=== PATIENT | female | born 1985 | race African-American/Black ===

== ENCOUNTER 2018-09-17 10:06 | Emergency (ER) | payer OTHER ==
[~2018-09-17] VITALS: Ht 162.6 cm; Wt 60.4 kg
[2018-09-17 10:35] LABS: BILIRUBIN,URINE NEGATIVE (NEG); CLARITY,URINE CLEAR; COLOR,URINE YELLOW; NITRITE,URINE NEGATIVE (NEG); PH,URINE 6.5; PROTEIN,URINE NEGATIVE (NEG-TRACE); UROBILINOGEN,URINE 0.2 mg/dL (0.2 mg/dL)
--- NOTE | 2018-09-17 10:50 | PHYS DOC ---
Past Medical History Past Medical History: No Pertinent History Past Surgical History: Other Additional Past Surgical Histo: R fallopian tube removed Alcohol Use: Occasionally Drug Use: Marijuana Adult General Chief Complaint Chief Complaint: ABDOMINAL PAIN HPI HPI 32-year-old female presents to ER via POV with complaints of diffuse abdominal pain for past couple weeks. She reports she's had intermittent nausea and did vomit 2 this morning. Patient states she has had concerns for constipation over the past couple weeks due to no bowel movement. She reports she has had regular appetite. She reports she has been taking [id number] fiber and stool softeners. Patient reports LMP 3 weeks ago. Patient states she has had her right fallopian tube removed previously. Patient denies any flu or cold-like illness. Patient denies fever or urinary symptoms. Review of Systems Review of Systems Constitutional: Denies fever or chills [] Respiratory: Denies cough or shortness of breath [] Cardiovascular: No additional information not addressed in HPI [] GI: Denies bloody stools or diarrhea. Reports diffuse abd pain/bloating and N/V. Reports concerns for constipation : Denies dysuria or hematuria. Denies vaginal sxs Musculoskeletal: Denies back pain or joint pain [] Integument: Denies rash or skin lesions [] Neurologic: Denies headache, focal weakness or sensory changes [] All other systems were reviewed and found to be within normal limits, except as documented in this note. Current Medications Current Medications Current Medications Medications (Trade) Dose Ordered Sig/Karen Start Time Stop Time Status Last Admin Dose Admin Acetaminophen (Tylenol) 650 mg 1X ONCE 09/17/18 13:00 09/17/18 13:13 DC 09/17/18 13:19 650 MG Magnesium Citrate (Citroma) 296 ml 1X ONCE 09/17/18 13:00 09/17/18 13:13 DC 09/17/18 13:19 296 ML Sodium Chloride 1,000 ml @ 1,000 mls/hr 1X ONCE 09/17/18 11:45 09/17/18 12:44 DC 09/17/18 12:25 1,000 MLS/HR Allergies Allergies Allergies Coded Allergies Type Severity Reaction Last Updated Verified No Known Drug Allergies 09/17/18 No Physical Exam Physical Exam Constitutional: Well developed, well nourished, anxious on initial exam, non- toxic appearance. [] HENT: Normocephalic, atraumatic, oropharynx moist, nose normal. [] Eyes: Pupils equal, conjunctiva normal, no discharge. [] Neck: Normal range of motion, no tenderness, supple, no stridor. [] Cardiovascular: Heart rate regular rhythm, no murmur [] Lungs & Thorax: Bilateral breath sounds clear to auscultation- resp. equal/nonlabored Abdomen: Bowel sounds normal, soft, diffuse tenderness in all abd no focal area or rebound tenderness, no rigidity, no masses, no pulsatile masses. [] Skin: Warm, dry, no erythema, no rash. [] Back: No tenderness, no CVA tenderness. [] Extremities: No tenderness, no cyanosis, no clubbing, ROM intact, no edema. [] Neurologic: Alert and oriented X 3, normal motor function, normal sensory function, no focal deficits noted. [] Psychologic: Affect normal, judgement normal, mood normal. [] Current Patient Data Vital Signs Vital Signs Date Time Temp Pulse Resp B/P (MAP) Pulse Ox O2 Delivery O2 Flow Rate FiO2 09/17/18 17:00 81 18 135/82 (99) 98 Room Air 09/17/18 10:12 98.2 98.2 Lab Values Laboratory Tests Test 09/17/18 10:15 09/17/18 10:19 09/17/18 10:40 Urine Collection Type Unknown Urine Color Yellow Urine Clarity Clear Urine pH 6.5 Urine Specific [place] 1.010 Urine Protein Negative mg/dL (NEG-TRACE) Urine Glucose (UA) Negative mg/dL (NEG) Urine Ketones (Stick) Negative mg/dL (NEG) Urine Blood Negative (NEG) Urine Nitrite Negative (NEG) Urine Bilirubin Negative (NEG) Urine Urobilinogen Dipstick 0.2 mg/dL (0.2 mg/dL) Urine Leukocyte Esterase Negative (NEG) Urine RBC 0 /HPF (0-2) Urine WBC 0 /HPF (0-4) Urine Squamous Epithelial Cells Few /LPF Urine Bacteria 0 /HPF (0-FEW) POC Urine HCG, Qualitative Borderline hcg level White Blood Count 20.0 x10^3/uL (4.0-11.0) H Red Blood Count 4.70 x10^6/uL (3.50-5.40) Hemoglobin 13.3 g/dL (12.0-15.5) Hematocrit 40.5 % (36.0-47.0) Mean Corpuscular Volume 86 fL (79-100) Mean Corpuscular Hemoglobin 28 pg (25-35) Mean Corpuscular Hemoglobin Concent 33 g/dL (31-37) Red Cell Distribution Width 13.1 % (11.5-14.5) Platelet Count 361 x10^3/uL (140-400) Neutrophils (%) (Auto) 89 % (31-73) H Lymphocytes (%) (Auto) 7 % (24-48) L Monocytes (%) (Auto) 3 % (0-9) Eosinophils (%) (Auto) 1 % (0-3) Basophils (%) (Auto) 0 % (0-3) Neutrophils # (Auto) 17.8 x10^3uL (1.8-7.7) H Lymphocytes # (Auto) 1.3 x10^3/uL (1.0-4.8) Monocytes # (Auto) 0.6 x10^3/uL (0.0-1.1) Eosinophils # (Auto) 0.2 x10^3/uL (0.0-0.7) Basophils # (Auto) 0.0 x10^3/uL (0.0-0.2) Segmented Neutrophils % 80 % (35-66) H Band Neutrophils % 2 % (0-9) Lymphocytes % 15 % (24-48) L Monocytes % 3 % (0-10) Platelet Estimate Adequate (ADEQUATE) Maternal Serum HCG Beta Subunit 43 mIU/mL (0-5) H Sodium Level 137 mmol/L (136-145) Potassium Level 4.2 mmol/L (3.5-5.1) Chloride Level 103 mmol/L (98-107) Carbon Dioxide Level 22 mmol/L (21-32) Anion Gap 12 (6-14) Blood Urea Nitrogen 10 mg/dL (7-20) Creatinine 0.9 mg/dL (0.6-1.0) Estimated GFR (Cockcroft-Gault) 86.7 BUN/Creatinine Ratio 11 (6-20) Glucose Level 89 mg/dL (70-99) Calcium Level 9.6 mg/dL (8.5-10.1) Total Bilirubin 0.8 mg/dL (0.2-1.0) Aspartate Amino Transferase (AST) 12 U/L (15-37) L Alanine Aminotransferase (ALT) 15 U/L (14-59) Alkaline Phosphatase 76 U/L (46-116) Total Protein 7.4 g/dL (6.4-8.2) Albumin 4.0 g/dL (3.4-5.0) Albumin/Globulin Ratio 1.2 (1.0-1.7) Lipase 70 U/L (73-393) L Laboratory Tests 09/17/18 10:40 Laboratory Tests 09/17/18 10:40 EKG EKG [] Radiology/Procedures Radiology/Procedures PROCEDURE: OB <14 WKS W/TV Examination: OB <14 WKS W/TV History: ABD/Pelvic pain H/O right tube removal
Comparison/Correlation: None Findings: Transabdominal and transvaginal pelvic ultrasound exams were performed. Transvaginal technique was utilized to better assess the adnexal structures. Uterus measures 8.8 cm x 6.1 cm x 4.8 cm. Antecubital thickness of 1 cm noted. No intrauterine gestational sac or fluid collection. Multiple nabothian cysts involving the uterine cervix. Right adnexa measures 2.9 cm x 2.1 cm x 1.9 cm. Left adnexa measures 2.5 cm x 2.4 seen by 2.2 cm. Left adnexal 2.5 cm x 2.9 cm x 1.7 cm septated cystic structure which may represent a hemorrhagic corpus luteum cyst is present. There is additional left adnexal cystic structure measuring 3.2 cm x 2.6 cm x 1.7 cm which has a solid component within it measuring 1.9 cm x 2.3 cm x 1.5 cm. No flow evident within this structure on color Doppler imaging. No pelvic free fluid. Impression: No intrauterine gestation. Left adnexal cystic structure with a solid component within. Ectopic gestation is not excluded. Correlate clinically in determining follow-up. Complex left adnexal cystic structure which likely represents hemorrhagic corpus luteum cyst is also seen. Interval follow-up should be considered to assess stability. Electronically signed by: Vega Ortiz MD (09/17/2018 12:44 PM) [facility] DICTATED and SIGNED BY: VEGA ORTIZ MD DATE: 09/17/18 1243 Course & Med Decision Making Course & Med Decision Making Pertinent Labs and Imaging studies reviewed. (See chart for details) 1040: Patient's UCG came back questionable and this was discussed with patient. Will obtain labs to verify prior to any imaging. 1250: Patient was evaluated in the ER for abdominal discomfort and had concerns for constipation. Patient's UCG was questionable so labs were obtained. Patient had hCG quantitative of 43 and so ultrasound was obtained. Discussed pelvic ultrasound results with patient and significant other who is at bedside- report of "No intrauterine gestation. Left adnexal cystic structure with a solid component within. Ectopic gestation is not excluded". Patient continues to complain of abdominal bloating and so dose of Tylenol and Mag citrate was ordered. UA was negative for infection. Labs pending. 1425: Patient had labs obtained showing WBCs of 20. Patient had ultrasound to further rule out possible acute process with appendix unable to be visualized. This was discussed with patient. Will obtain MRI of abdomen to further rule out. Patient is agreeable with this plan. Pt reports she did have sm. BM following 1/2 bottle of Mg citrate. She is is no visible distress. 1714: Spoke with Dr. Nixon, generation manager A P MANAGER and discussed pt's case and plan of care, lab, and MRI results. Dr. Nixon requests patient to be discharged home PO doxycycline 100 mg twice a day 1 week for concerns of possible endometrial infection and patient to be advised on need for follow-up at her clinic in 2 days for repeat hCG quantitative. This phone call was discussed with pt and her significant other who remains at bedside. Pt remains nontoxic in appearance and in no distress. She reports her abdominal pain and bloating has improved following small bowel movement while in the ER and that she actually has an appetite right now. Patient is comfortable with home discharge plan as discussed. Patient encouraged to increase fluid intake. Advised on signs and symptoms to return to ER for. Will provide Dr. Nixon's referral information on discharge paperwork for follow-up and patient was advised if symptoms worsen or with concerns to return to ER for reevaluation and further care as needed. Patient advised on use of Tylenol PRN for pain and to avoid other medications unless discussed with A P MANAGER. Pt's case and plan of care was discussed with Dr. Green. Dragon Disclaimer Dragon Disclaimer This electronic medical record was generated, in whole or in part, using a voice recognition dictation system. Departure Departure Impression: Primary Impression: Additional Impressions: Abdominal pain in Constipation during Disposition: 01 HOME, SELF-CARE Condition: STABLE Referrals: NO PCP (PCP) YAW VILLARREAL Jr, MD Patient Instructions: Constipation, Adult, Ovarian Cyst Additional Instructions: Drink plenty of water and eat well balanced meals. Follow-up with an A P MANAGER in 48 hours for recheck of level. Today's level was 43. You will further evaluation with an A P MANAGER as your ultrasound/MRI showed multiple cysts on your left ovary and concerns for possible ectopic . Avoid smoking/alcohol. Tylenol as directed on container as needed for pain. If you have any concerns and are unable to get into A [facility] for reevaluation return to the emergency department for further care and reevaluation. Dr. Nixon [phone] [id number] Call the office as soon as possible and schedule appointment- tell them Dr. Nixon was contacted by the Emergency Department Nurse Practitioner and Dr. Nixon wanted follow-up in 2 days for recheck of level. Scripts Doxycycline Hyclate (DOXYCYCLINE HYCLATE) 100 Mg Tablet 1 TAB PO BID, #14 TAB 0 Refills Prov: AMBER MORA APRN 09/17/18 Problem Qualifiers AMBER MORA APRN Sep 17, 2018 10:50
[2018-09-17 11:00] LABS: BACTERIA,URINE 0 /HPF (0-FEW); RBC,URINE 0 /HPF (0-2); SQUAMOUS EPITHELIAL CELL,UR FEW /LPF; WBC,URINE 0 /HPF (0-4)
[2018-09-17] MEDS ORDERED: IV NORMAL SALINE 1000ML BAG 1,000 ML IV ONE (11:45)
--- NOTE | 2018-09-17 12:47 | RAD ---
Examination: OB <14 WKS W/TV History: ABD/Pelvic pain H/O right tube removal
Comparison/Correlation: None Findings: Transabdominal and transvaginal pelvic ultrasound exams were performed. Transvaginal technique was utilized to better assess the adnexal structures. Uterus measures 8.8 cm x 6.1 cm x 4.8 cm. Antecubital thickness of 1 cm noted. No intrauterine gestational sac or fluid collection. Multiple nabothian cysts involving the uterine cervix. Right adnexa measures 2.9 cm x 2.1 cm x 1.9 cm. Left adnexa measures 2.5 cm x 2.4 seen by 2.2 cm. Left adnexal 2.5 cm x 2.9 cm x 1.7 cm septated cystic structure which may represent a hemorrhagic corpus luteum cyst is present. There is additional left adnexal cystic structure measuring 3.2 cm x 2.6 cm x 1.7 cm which has a solid component within it measuring 1.9 cm x 2.3 cm x 1.5 cm. No flow evident within this structure on color Doppler imaging. No pelvic free fluid. Impression: No intrauterine gestation. Left adnexal cystic structure with a solid component within. Ectopic gestation is not excluded. Correlate clinically in determining follow-up. Complex left adnexal cystic structure which likely represents hemorrhagic corpus luteum cyst is also seen. Interval follow-up should be considered to assess stability. Electronically signed by: Vega Gatica MD (09/17/2018 12:44 PM) [facility]
[2018-09-17 13:00] LABS: BASO % 0 % (0-3); EOS # 0.2 x10^3/uL (0.0-0.7); EOS % 1 % (0-3); HEMATOCRIT 40.5 % (36.0-47.0); HEMOGLOBIN 13.3 g/dL (12.0-15.5); LYMPH # 1.3 x10^3/uL (1.0-4.8); LYMPH % 7 % (24-48); MEAN CORPUSCULAR HEMOGLOBIN 28 pg (25-35); MEAN CORPUSCULAR HGB CONC 33 g/dL (31-37); MEAN CORPUSCULAR VOLUME 86 fL (79-100); MONO # 0.6 x10^3/uL (0.0-1.1); MONO % 3 % (0-9); NEUT # 17.8 x10^3uL (1.8-7.7); NEUT % 89 % (31-73); PLATELET COUNT 361 x10^3/uL (140-400); RED CELL DISTRIBUTION WIDTH 13.1 % (11.5-14.5)
[2018-09-17] MEDS ORDERED: ACETAMINOPHEN 325 MG TABLET. PO ONE (13:00)
[2018-09-17] MEDS ORDERED: MAGNESIUM CITRATE 296 ML SOLUTION. PO ONE (13:00)
[2018-09-17 13:05] LABS: CALCIUM 9.6 mg/dL (8.5-10.1); CREATININE 0.9 mg/dL (0.6-1.0); GFR 86.7; POTASSIUM 4.2 mmol/L (3.5-5.1)
[2018-09-17 13:11] LABS: ALBUMIN/GLOBULIN RATIO 1.2 (1.0-1.7); TOTAL BILIRUBIN 0.8 mg/dL (0.2-1.0); TOTAL PROTEIN 7.4 g/dL (6.4-8.2)
[2018-09-17 14:17] LABS: % BANDS 2 % (0-9); % LYMPHS 15 % (24-48); % MONOS 3 % (0-10); % SEGS 80 % (35-66); PLT ESTIMATE ADEQUATE (ADEQUATE)
--- NOTE | 2018-09-17 14:38 | RAD ---
Limited sonogram of the abdomen Clinical indications: Abdominal pain. Elevated white blood cell count. Possible appendicitis. FINDINGS: High-resolution sonography with graded compression was performed throughout the right lower quadrant of the abdomen. Fluid-filled bowel loops are seen. The appendix is not visualized. No free fluid is evident. IMPRESSION: The appendix is not visualized. Fluid-filled bowel loops are seen within the right lower quadrant of the abdomen. Electronically signed by: Gaston Mendiola MD (09/17/2018 2:35 PM) [place] [id number]
--- NOTE | 2018-09-17 16:24 | RAD ---
ABDOMEN WO CONTRAST Clinical Indication: RLQ PAIN, UNABLE TO VISUALIZE APPENDIX ON SONO, UNABLE TO OBTAIN CT DUE TO NEW , NO SX HX. Comparison: Obstetric ultrasound, earlier same day. TECHNIQUE: Routine multiplanar multiple pulse sequence images of the lower abdomen and pelvis are obtained without IV contrast. Findings: Only T2 weighted sequences are performed, limiting evaluation. There is no intrauterine gestational sac. There are large nabothian cysts. There is moderate pelvic free fluid. There is a 2.6 cm left ovary cyst, may be a corpus luteal cyst. There is small amount of layering low signal which could be a component of hemorrhage. Separate from the left ovary there is a left adnexal cyst measuring 3 x 1.9 cm. Within the cyst there is a structure measuring 1.1 cm. Cannot exclude that this is an ectopic gestational sac with a pole. There are tiny functional cysts of the right ovary. The appendix is normal caliber. IMPRESSION: 1. Left adnexal findings are suspicious for ectopic . Consider short-term follow-up pelvic ultrasound. 2. Moderate pelvic free fluid. 3. Left ovary functional cyst may be a mildly hemorrhagic corpus luteum. 4. The appendix is normal. Electronically signed by: Dick Hamilton MD (09/17/2018 4:21 PM) [id number]
[2018-09-17 17:00] VITALS: BP 135/82
[2018-09-17] MEDS ORDERED: DOXY100T PO (17:33)
== END 2018-09-17 17:39 | disposition home or self-care (01) ==
LOC: ER 10:06
DX: O99.611 Diseases of the digestive system complicating pregnancy, first trimester (principal); K59.00 Constipation, unspecified; O21.8 Other vomiting complicating pregnancy; Z3A.01 Less than 8 weeks gestation of pregnancy
CPT/HCPCS: 36415; 74181; 76801; 76817; 80053; 81001; 81025; 83690; 84702; 85007; 85025; 93975; 96360; 99285; J7030

== ENCOUNTER 2018-10-31 03:53 | Emergency (ER) | payer OTHER ==
[~2018-10-31] VITALS: Ht 162.6 cm; Wt 62.1 kg
[~2018-10-31 03:53] MED LIST: DOXY100T PO
[2018-10-31 03:55] VITALS: BP 196/127
--- NOTE | 2018-10-31 04:17 | PHYS DOC ---
Past Medical History Past Medical History: No Pertinent History Past Surgical History: Other Additional Past Surgical Histo: R fallopian tube removed Alcohol Use: Occasionally Drug Use: Marijuana Adult General Chief Complaint Chief Complaint: ACCIDENTAL INGESTION HPI HPI 32-year-old female who is presently 10 weeks presents after she accidentally took a swig of a cleaning solution of [place] and possibly bleach. She states she didn't swallow any and spit it out just as soon as she tasted it in her mouth. However, she has a burning sensation in the back of her throat. She denies any difficulty breathing or swallowing. She states she's been nauseous and she did this about an hour ago. She assures me that she did not do this intentionally.[] Review of Systems Review of Systems Constitutional: Denies fever or chills [] Eyes: Denies change in visual acuity, redness, or eye pain [] HENT: Burning in the back of her throat[] Respiratory: Denies cough or shortness of breath [] Cardiovascular: No additional information not addressed in HPI [] GI: Nausea[] : Denies dysuria or hematuria [] Musculoskeletal: Denies back pain or joint pain [] Integument: Denies rash or skin lesions [] Neurologic: Denies headache, focal weakness or sensory changes [] Endocrine: Denies polyuria or polydipsia [] All other systems were reviewed and found to be within normal limits, except as documented in this note. Allergies Allergies Allergies Coded Allergies Type Severity Reaction Last Updated Verified No Known Drug Allergies 09/17/18 No Physical Exam Physical Exam Constitutional: Well developed, well nourished, no acute distress, non-toxic appearance. [] HENT: Normocephalic, atraumatic, bilateral external ears normal, oropharynx moist, no oral exudates, nose normal. [] Eyes: PERRLA, EOMI, conjunctiva normal, no discharge. [] Neck: Normal range of motion, no tenderness, supple, no stridor. [] Cardiovascular:Heart rate regular rhythm, no murmur [] Lungs & Thorax: Bilateral breath sounds clear to auscultation [] Abdomen: Bowel sounds normal, soft, no tenderness, no masses, no pulsatile masses. [] Skin: Warm, dry, no erythema, no rash. [] Back: No tenderness, no CVA tenderness. [] Extremities: No tenderness, no cyanosis, no clubbing, ROM intact, no edema. [] Neurologic: Alert and oriented X 3, normal motor function, normal sensory function, no focal deficits noted. [] Psychologic: Extremely anxious. [] EKG EKG [] Radiology/Procedures Radiology/Procedures [] Course & Med Decision Making Course & Med Decision Making Pertinent Labs and Imaging studies reviewed. (See chart for details) [ED course: Evaluation reveals a very anxious 32-year-old female who is in no distress. Her posterior pharynx is not erythematous. I doubt she drank enough to cause any difficulty. I will go ahead and give her a GI cocktail just to help alleviate her symptoms. Think the patient is safe for discharge home at this time.] Dragon Disclaimer Dragon Disclaimer This electronic medical record was generated, in whole or in part, using a voice recognition dictation system. Departure Departure Impression: Primary Impression: Accidental ingestion of substance Disposition: 01 HOME, SELF-CARE Condition: STABLE Referrals: NO PCP (PCP) Patient Instructions: Nontoxic Ingestion Additional Instructions: Drink milk throughout the day today. Return to the emergency department with any new or concerning symptoms Problem Qualifiers Primary Impression: Accidental ingestion of substance Encounter type: initial encounter Qualified Codes: T65.91XA - Toxic effect of unspecified substance, accidental (unintentional), initial encounter WILLY NEW DO Oct 31, 2018 04:17
[2018-10-31] MEDS ORDERED: LIDO:MAALOX 1:1 20 ML SINGLE DOSE. SWSW ONE (04:30)
== END 2018-10-31 04:30 | disposition home or self-care (01) ==
LOC: ER 03:53
DX: O9A.211 Injury, poisoning and certain other consequences of external causes complicating pregnancy, first trimester (principal); T50.991A Poisoning by other drugs, medicaments and biological substances, accidental (unintentional), initial encounter; R07.0 Pain in throat; F41.9 Anxiety disorder, unspecified; Z3A.10 10 weeks gestation of pregnancy; Y92.89 Other specified places as the place of occurrence of the external cause
CPT/HCPCS: 99282

== ENCOUNTER 2018-12-11 14:22 | Emergency (ER) | payer MEDICAID, OTHER ==
[~2018-12-11] VITALS: Ht 162.6 cm; Wt 62.1 kg
--- NOTE | 2018-12-11 15:40 | PHYS DOC ---
Past Medical History Past Medical History: No Pertinent History Past Surgical History: Other Additional Past Surgical Histo: R fallopian tube removed Alcohol Use: None Drug Use: Marijuana Adult General Chief Complaint Chief Complaint: ABDOMINAL PAIN HPI HPI Patient is a 33 year old female 1 para 0 currently 16 weeks presenting to the ED today with multiple complaints including mild cramping abdominal pain intermittently for 5 days. Patient states yesterday she had to leave work due to the pain. 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 She states she was sent to the hospital for clearance before she can be allowed back to work. Patient states being on her feet for long hours exacerbates her pain. She is also complaining of nausea and vomiting since yesterday after running out of her Zofran. Patient denies any hematemesis or melena. She also states she was treated for Trichomonas 2 weeks ago at [facility], she states after the treatment she developed yeast infection which she is still fighting up to now. She states she was put on clindamycin suppositories which she is still using. She states she believes she still has the yeast infection. She states her partner was also treated for STDs and she's not been sexually active since her treatment. Patient denies any vaginal bleeding. Denies any urgency, frequency, dysuria. She states she follows up with Dr. Pearl her [facility] last visit was a month ago. She states she has tried to call the office but no one is picking up the phone. Review of Systems Review of Systems Constitutional: Denies fever or chills [] Eyes: Denies change in visual acuity, redness, or eye pain [] HENT: Denies nasal congestion or sore throat [] Respiratory: Denies cough or shortness of breath [] Cardiovascular: No additional information not addressed in HPI [] GI: Reports abdominal pain, nausea, vomiting, vaginal discharge, denies bloody stools or diarrhea [] : Denies dysuria or hematuria [] Musculoskeletal: Denies back pain or joint pain [] Integument: Denies rash or skin lesions [] Neurologic: Denies headache, focal weakness or sensory changes [] All other systems were reviewed and found to be within normal limits, except as documented in this note. Allergies Allergies Allergies Coded Allergies Type Severity Reaction Last Updated Verified No Known Drug Allergies 09/17/18 No Physical Exam Physical Exam Constitutional: Well developed, well nourished, no acute distress, non-toxic appearance. [] HENT: Normocephalic, atraumatic, bilateral external ears normal, oropharynx moist, no oral exudates, nose normal. [] Eyes: PERRLA, EOMI, conjunctiva normal, no discharge. [] Neck: Normal range of motion, no tenderness, supple, no stridor. [] Cardiovascular:Heart rate regular rhythm, no murmur [] Lungs & Thorax: Bilateral breath sounds clear to auscultation [] Abdomen: Bowel sounds normal, soft, no tenderness, no masses, no pulsatile masses. [] Gravid abdomen. Pelvic exam External pelvic appears normal, cervix is visualized, closed, no CMT, thick white cream noted in the vaginal vault consistent with clindamycin. No adnexal tenderness. Skin: Warm, dry, no erythema, no rash. [] Back: No tenderness, no CVA tenderness. [] Extremities: No tenderness, no cyanosis, no clubbing, ROM intact, no edema. [] Neurologic: Alert and oriented X 3, normal motor function, normal sensory function, no focal deficits noted. [] Psychologic: Affect normal, judgement normal, mood normal. [] Current Patient Data Vital Signs Vital Signs Date Time Temp Pulse Resp B/P (MAP) Pulse Ox O2 Delivery O2 Flow Rate FiO2 12/11/18 14:48 98.5 73 16 120/72 (88) 99 Room Air 98.5 Lab Values Laboratory Tests Test 12/11/18 14:30 12/11/18 14:32 12/11/18 15:55 Urine Collection Type Unknown Urine Color Yellow Urine Clarity Cloudy Urine pH 5.5 Urine Specific [place] 1.020 Urine Protein Negative mg/dL (NEG-TRACE) Urine Glucose (UA) Negative mg/dL (NEG) Urine Ketones (Stick) Negative mg/dL (NEG) Urine Blood Negative (NEG) Urine Nitrite Negative (NEG) Urine Bilirubin Negative (NEG) Urine Urobilinogen Dipstick 0.2 mg/dL (0.2 mg/dL) Urine Leukocyte Esterase Small (NEG) Urine RBC 0 /HPF (0-2) Urine WBC 1-4 /HPF (0-4) Urine Squamous Epithelial Cells Mod /LPF Urine Bacteria Few /HPF (0-FEW) Urine Yeast Present /HPF Urine Opiates Screen Neg (NEG) Urine Methadone Screen Neg (NEG) Urine Barbiturates Neg (NEG) Urine Phencyclidine Screen Neg (NEG) Urine Amphetamine/Methamphetamine Neg (NEG) Urine Benzodiazepines Screen Neg (NEG) Urine Cocaine Screen Pos (NEG) Urine Cannabinoids Screen Pos (NEG) Urine Ethyl Alcohol Neg (NEG) POC Urine HCG, Qualitative Hcg positive (Negative) White Blood Count 10.6 x10^3/uL (4.0-11.0) Red Blood Count 4.06 x10^6/uL (3.50-5.40) Hemoglobin 12.4 g/dL (12.0-15.5) Hematocrit 35.5 % (36.0-47.0) L Mean Corpuscular Volume 87 fL (79-100) Mean Corpuscular Hemoglobin 31 pg (25-35) Mean Corpuscular Hemoglobin Concent 35 g/dL (31-37) Red Cell Distribution Width 15.3 % (11.5-14.5) H Platelet Count 283 x10^3/uL (140-400) Neutrophils (%) (Auto) 76 % (31-73) H Lymphocytes (%) (Auto) 17 % (24-48) L Monocytes (%) (Auto) 6 % (0-9) Eosinophils (%) (Auto) 1 % (0-3) Basophils (%) (Auto) 1 % (0-3) Neutrophils # (Auto) 8.1 x10^3/uL (1.8-7.7) H Lymphocytes # (Auto) 1.7 x10^3/uL (1.0-4.8) Monocytes # (Auto) 0.7 x10^3/uL (0.0-1.1) Eosinophils # (Auto) 0.1 x10^3/uL (0.0-0.7) Basophils # (Auto) 0.0 x10^3/uL (0.0-0.2) Sodium Level 139 mmol/L (136-145) Potassium Level 3.4 mmol/L (3.5-5.1) L Chloride Level 103 mmol/L (98-107) Carbon Dioxide Level 25 mmol/L (21-32) Anion Gap 11 (6-14) Blood Urea Nitrogen 8 mg/dL (7-20) Creatinine 0.8 mg/dL (0.6-1.0) Estimated GFR (Cockcroft-Gault) 98.8 BUN/Creatinine Ratio 10 (6-20) Glucose Level 59 mg/dL (70-99) L Calcium Level 9.0 mg/dL (8.5-10.1) Total Bilirubin 0.5 mg/dL (0.2-1.0) Aspartate Amino Transferase (AST) 13 U/L (15-37) L Alanine Aminotransferase (ALT) 14 U/L (14-59) Alkaline Phosphatase 56 U/L (46-116) Total Protein 6.7 g/dL (6.4-8.2) Albumin 3.2 g/dL (3.4-5.0) L Albumin/Globulin Ratio 0.9 (1.0-1.7) L Lipase 96 U/L (73-393) Ethyl Alcohol Level < 3 mg/dL (0-10) Laboratory Tests 12/11/18 15:55 Laboratory Tests 12/11/18 15:55 Microbiology 12/11/18 Wet Prep - Final, Complete EKG EKG [] Radiology/Procedures Radiology/Procedures []PROCEDURE: PREG MORE THAN OR EQ TO 14 WKS Indication: abdominal pain in TECHNIQUE: Ultrasound OB greater than equal to 14 weeks COMPARISON: None FINDINGS: Single intrauterine seen with heart rate of 141 bpm. The biparietal diameter measures 3.15 cm corresponding to gestation age of 15 weeks 6 days. Head circumference measures 11.58 cm corresponding to gestation age of 15 weeks 5 days. Abdominal circumference measures 9.95 cm corresponding to gestation age of 16 weeks 0 days. Femoral length measures 2.05 cm corresponding to gestation age of 16 weeks 1 day. Estimated weight of 142 g. Cervical length measures 4.84 cm and is closed. Placenta lies posterior and fundal in location. Amniotic Fluid index of 10.5 cm which is normal. Breech position. IMPRESSION: Single live viable intrauterine with estimated gestation age of 16 weeks 0 days and due date of 05/31/2018. Electronically signed by: Max Dsouza DO (12/11/2018 4:28 PM) [facility] DICTATED and SIGNED BY: MAX DSOUZA DO DATE: 12/11/18 1047 Course & Med Decision Making Course & Med Decision Making Pertinent Labs and Imaging studies reviewed. (See chart for details) This is a 33-year-old female patient 1 para 0 currently 16 weeks presenting to the ED today with multiple complaints including abdominal cramping, vaginal discharge, nausea and vomiting, requests for note for work. See history of present illness for further information CBC, CMP, no acute findings, urine analysis is noted for small amount of leukocytes, urine appears grossly contaminated, wet prep negative for any acute findings, urine analysis is also noted for yeast infection. OB ultrasound is noted for an IUP 16 weeks . Results are given to patient. Patient encouraged to continue using clindamycin for the yeast infection and take yogurt. I recommended [id number] Monistat too. Note for work provided. Discharged in stable condition. F/u with OB next week Dragon Disclaimer Dragon Disclaimer This electronic medical record was generated, in whole or in part, using a voice recognition dictation system. Departure Departure Impression: Primary Impression: Abdominal pain in Additional Impression: Yeast infection Disposition: HOME, SELF-CARE Condition: STABLE Referrals: NO PCP (PCP) SUDHIR HUBBARD MD follow up next week Patient Instructions: Abdominal Pain During Additional Instructions: You were evaluated in the emergency room for multiple complaints. Please follow- up with your [facility] next week. As discussed consider taking yogurt twice a day. Come back to the ED at any point symptoms worsen. Scripts Ondansetron (ONDANSETRON ODT) 4 Mg Tab.rapdis 1 TAB PO PRN Q6-8HRS, #30 TAB Prov: YULISSA BUSTILLOS ENDOSCOPY RN 12/11/18 Problem Qualifiers Primary Impression: Abdominal pain in Trimester: unspecified trimester Qualified Codes: O26.899 - Other specif ied related conditions, unspecified trimester; R10.9 - Unspecified abdominal pain YULISSA BUSTILLOS ENDOSCOPY RN Dec 11, 2018 15:40
[2018-12-11 15:45] LABS: BILIRUBIN,URINE NEGATIVE (NEG); CLARITY,URINE CLOUDY; COLOR,URINE YELLOW; NITRITE,URINE NEGATIVE (NEG); PH,URINE 5.5; PROTEIN,URINE NEGATIVE (NEG-TRACE); UROBILINOGEN,URINE 0.2 mg/dL (0.2 mg/dL)
[2018-12-11 15:53] LABS: AMPHETAMINE/METHAMPHETAMINE NEG (NEG); BACTERIA,URINE FEW /HPF (0-FEW); BARBITURATES NEG (NEG); BENZODIAZEPINES NEG (NEG); CANNABINOIDS POS (NEG); COCAINE POS (NEG); METHADONE NEG (NEG); OPIATES NEG (NEG); PHENCYCLIDINE NEG (NEG); RBC,URINE 0 /HPF (0-2); SQUAMOUS EPITHELIAL CELL,UR MOD /LPF; YEAST,URINE PRESENT /HPF
[2018-12-11 16:05] LABS: BASO % 1 % (0-3); EOS # 0.1 x10^3/uL (0.0-0.7); EOS % 1 % (0-3); HEMATOCRIT 35.5 % (36.0-47.0); HEMOGLOBIN 12.4 g/dL (12.0-15.5); LYMPH # 1.7 x10^3/uL (1.0-4.8); LYMPH % 17 % (24-48); MEAN CORPUSCULAR HEMOGLOBIN 31 pg (25-35); MEAN CORPUSCULAR HGB CONC 35 g/dL (31-37); MEAN CORPUSCULAR VOLUME 87 fL (79-100); MONO # 0.7 x10^3/uL (0.0-1.1); MONO % 6 % (0-9); NEUT # 8.1 x10^3/uL (1.8-7.7); NEUT % 76 % (31-73); PLATELET COUNT 283 x10^3/uL (140-400); RED BLOOD COUNT 4.06 x10^6/uL (3.50-5.40); RED CELL DISTRIBUTION WIDTH 15.3 % (11.5-14.5); WHITE BLOOD COUNT 10.6 x10^3/uL (4.0-11.0)
[2018-12-11 16:19] LABS: CREATININE 0.8 mg/dL (0.6-1.0); GFR 98.8; POTASSIUM 3.4 mmol/L (3.5-5.1)
[2018-12-11 16:27] LABS: ALBUMIN 3.2 g/dL (3.4-5.0); ALBUMIN/GLOBULIN RATIO 0.9 (1.0-1.7); TOTAL BILIRUBIN 0.5 mg/dL (0.2-1.0); TOTAL PROTEIN 6.7 g/dL (6.4-8.2)
--- NOTE | 2018-12-11 16:30 | RAD ---
Indication: abdominal pain in TECHNIQUE: Ultrasound OB greater than equal to 14 weeks COMPARISON: None FINDINGS: Single intrauterine seen with heart rate of 141 bpm. The biparietal diameter measures 3.15 cm corresponding to gestation age of 15 weeks 6 days. Head circumference measures 11.58 cm corresponding to gestation age of 15 weeks 5 days. Abdominal circumference measures 9.95 cm corresponding to gestation age of 16 weeks 0 days. Femoral length measures 2.05 cm corresponding to gestation age of 16 weeks 1 day. Estimated weight of 142 g. Cervical length measures 4.84 cm and is closed. Placenta lies posterior and fundal in location. Amniotic Fluid index of 10.5 cm which is normal. Breech position. IMPRESSION: Single live viable intrauterine with estimated gestation age of 16 weeks 0 days and due date of 05/31/2018. Electronically signed by: Max Dsouza DO (12/11/2018 4:28 PM) [facility]
[2018-12-11 16:45] VITALS: BP 119/70
[2018-12-11] MEDS ORDERED: ONDA4TAB12 PO (17:22)
[2018-12-14 18:09] LABS: GC PROBE Positive (Negative)
--- NOTE | 2018-12-15 13:55 | VNOTE ---
CALL BACK NOTE CALL BACK Microbiology 12/11/18 Wet Prep - Final, Complete 12/11/18 Urine Culture - Final, Complete 12/11/18 Urine Culture Result 1 (DENNY) - Final, Complete Positive for gonorrhea, the number she provided is unreachable. YULISSA BUSTILLOS APRN Dec 15, 2018 13:55
== END 2018-12-11 17:39 | disposition home or self-care (01) ==
LOC: ER 14:22
DX: O98.812 Other maternal infectious and parasitic diseases complicating pregnancy, second trimester (principal); B37.89 Other sites of candidiasis; R10.9 Unspecified abdominal pain; Z90.721 Acquired absence of ovaries, unilateral; Z3A.16 16 weeks gestation of pregnancy
CPT/HCPCS: 36415; 76805; 80053; 80307; 81001; 81025; 83690; 85025; 87086; 87491; 87591; 99285; G0480; Q0111

== ENCOUNTER → 2019-01-22 | Outpatient (CLI) | payer MEDICAID ==
[~2019-01-22] MED LIST changes: +ONDA4TAB12 PO
--- NOTE | 2019-01-22 16:18 | RAD ---
Examination: PREG MORE THAN OR EQ TO 14 WKS History: age and growth Comparison/Correlation: 12/11/2018 OB ultrasound exam Findings: Single living intrauterine gestation with cephalic lie is present. Posterior wall placenta is present. Estimated weight is 450 g. anatomy identified includes: Bladder, spine, bilateral lateral ventricles, stomach, heart, aorta, three-vessel cord insertion, bilateral kidneys, diaphragm, cerebellum, cisterna magna, bilateral upper extremities, and bilateral lower extremities. The face is poorly visualized due to positioning. gender: Male measurements include: Biparietal diameter: 5.3 cm corresponding to 22 weeks 1 day. Femur length of 3.8 cm corresponding to 20 weeks 0 day. Head circumference of 19.1 cm corresponding to 21 weeks 3 days. Abdominal circumference of 16.8 cm corresponding to 21 weeks 6 days. Age by 4 parameters corresponds to 21 weeks 6 days. EDC by average age is 05/29/2019. Gestational age by last menstrual period is 22 weeks 2 days. Cephalic index of 87.1 is above normal range. H/A ratio is 1.14. FL/BPD is 70.7. FL/ AC is 22.4. Maternal cervical length is 5 cm. IMPRESSION: Single living intrauterine gestation with average ultrasound age of 21 weeks 6 days is identified. Adequate interval growth is noted since the previous ultrasound exam. Average ultrasound age is slightly less than age by last menstrual period. Electronically signed by: Vega Gatica MD (01/22/2019 4:15 PM) [facility]
== END | disposition home or self-care (01) ==
LOC: US 14:44
PROVIDERS: ATTEND Obstetrics & Gynecology
DX: Z34.92 Encounter for supervision of normal pregnancy, unspecified, second trimester (principal); Z3A.21 21 weeks gestation of pregnancy
CPT/HCPCS: 76805